=== PATIENT | female | born 1935 | race Caucasian/White ===

== ENCOUNTER 2023-01-27 09:07 | Inpatient (IN) | payer OTHER ==
[~2023-01-27] VITALS: Ht 170.2 cm; Wt 60.3 kg
[2023-01-27] MEDS ORDERED: MAGNESIUM SULFATE 2 GM in IV DEXTROSE 5% 100 ML IV ONE (09:45)
[2023-01-27] MEDS ORDERED: DILTIAZEM HCL 25 MG IV IV ONE (09:45)
[2023-01-27] MEDS ORDERED: POTASSIUM BICARBONATE/CIT AC 25 MEQ TABLET.EFF PO ONE (09:45)
[2023-01-27 10:14] LABS: BASOPHILS # (AUTO) 0.3 K/UL (0.0-0.2); BASOPHILS % (AUTO) 1.8 % (0.0-2.0); EOSINOPHILS # (AUTO) 0.1 K/uL (0.0-0.7); EOSINOPHILS % (AUTO) 0.7 % (0.0-7.0); HEMATOCRIT 31.1 % (31.2-41.9); HEMOGLOBIN 9.4 g/dL (10.9-14.3); LYMPHOCYTES # (AUTO) 1.5 K/uL (0.8-4.8); LYMPHOCYTES % (AUTO) 9.1 % (20.5-51.5); MEAN CORPUSCULAR HEMOGLOBIN 22.7 uug (24.7-32.8); MEAN CORPUSCULAR HGB CONC 30 g/dL (32.3-35.6); MEAN CORPUSCULAR VOLUME 75.6 fL (75.5-95.3); NEUTROPHILS # (AUTO) 13.6 K/uL (1.8-8.9); NEUTROPHILS % (AUTO) 82.4 % (38.5-71.5); PLATELET COUNT (AUTO) 194 K/uL (179-408); RED BLOOD CELL COUNT(AUTO) 4.12 MIL/uL (3.63-4.92); RED CELL DISTRIBUTION WIDTH 18.2 % (12.3-17.7); WHITE BLOOD COUNT (AUTO) 16.5 K/uL (3.8-11.8)
[2023-01-27] MEDS ORDERED: DILTIAZEM HCL 25 MG IV ONE (10:19)
[2023-01-27] MEDS ORDERED: POTASSIUM BICARBONATE/CIT AC 25 MEQ TABLET.EFF ONE (10:19)
[2023-01-27 10:30] LABS: DIFFERENTIAL COMMENT 1
[2023-01-27] MEDS ORDERED: MAGNESIUM SULFATE/D5W 100 ML ONE ×2 (11:10→12:13)
[2023-01-27] MEDS: MAGNESIUM SULFATE/D5W 100 ML IV SCH ×2 (11:15→12:18)
[2023-01-27 12:16] LABS: *CLARITY,URINE CLEAR (CLEAR); *COLOR,URINE YELLOW (YELLOW)
[2023-01-27 12:17] LABS: *BILIRUBIN,URIN NEGATIVE (NEGATIVE); *BLOOD, URINE TRACE (NEGATIVE); *KETONES,URINE NEGATIVE (NEGATIVE); *PROTEIN,URINE NEGATIVE (NEGATIVE); *UROBILINOGEN,URINE 0.2 E.U./dl (NORMAL); LEUKOCYTE ESTERASE ,URINE NEGATIVE (NEGATIVE); NITRITE, URINE NEGATIVE (NEGATIVE); UGLUCOSE NEGATIVE (NEGATIVE)
[2023-01-27] MEDS ORDERED: AZITHROMYCIN IV 500 MG in IV DEXTROSE 5% 250 ML IV ONE (12:30)
[2023-01-27] MEDS ORDERED: CEFTRIAXONE 1 G in IV DEXTROSE 5% 50 ML IV ONE (12:30)
[2023-01-27] MEDS ORDERED: CEFTRIAXONE /D5W 50ML IVPB **ER PYXIS IV ONE (12:40)
[2023-01-27] MEDS ORDERED: AZITHROMYCIN 500MG/ D5W 250ML IVPB **ER PYXIS ONLY IV ONE (12:40)
[2023-01-27 12:42] LABS: BACTERIA,URINE NONE SEEN /HPF (NONE SEEN); RBC,URINE 0-3 /HPF (0-3); SQUAMOUS EPITHELIAL CELL,UR FEW /HPF (NONE SEEN)
[2023-01-27 13:53] LABS: CALCIUM 9.6 mg/dL (8.5-10.1); CARBON DIOXIDE 21 mmol/L (21-32); CHLORIDE 106 mmol/L (98-107); CREATININE 0.8 mg/dL (0.6-1.3); GLUCOSE 139 mg/dL (74-106); POTASSIUM 4.2 mmol/L (3.5-5.1); SODIUM SERUM 141 mmol/L (136-145); UREA NITROGEN, BLOOD 19 mg/dL (7-18)
[2023-01-27 14:06] LABS: NT-PRO BNP 5572 pg/mL (0-125)
[2023-01-27] MEDS ORDERED: ACETAMINOPHEN 325 MG TABLET PO PRN (14:15)
[2023-01-27] MEDS ORDERED: MAGNESIUM HYDROXIDE 30 ML LIQUID UDC PO PRN (14:15)
[2023-01-27] MEDS ORDERED: ONDANSETRON 4 MG/2 ML VIAL IV PRN (14:15)
[2023-01-27] MEDS ORDERED: IV 1/2NS 1000 ML 1,000 ML IV PRN (14:15)
[2023-01-27 14:39] LABS: IRON, SERUM 9 ug/dL (50-175)
[2023-01-27 14:53] LABS: FERRITIN 18 ng/mL (8-252)
[2023-01-27] MEDS ORDERED: ENOXAPARIN SODIUM 40 MG/0.4 ML DISP.SYRIN SQ ONE (15:26)
[2023-01-27] MEDS: ENOXAPARIN SODIUM 40 MG/0.4 ML DISP.SYRIN SQ SCH (15:34)
[2023-01-27] MEDS ORDERED: BRIN8DRO EACHEYE (15:36)
[2023-01-27] MEDS ORDERED: ASPI81TA31 PO (15:36)
[2023-01-27] MEDS ORDERED: AMIT25TA9 PO (15:36)
[2023-01-27] MEDS ORDERED: ANAG1CAP3 PO (15:36)
[2023-01-27] MEDS ORDERED: TAMO20TA4 PO (15:36)
[2023-01-27] MEDS ORDERED: TIMO5DRO35 EACHEYE (15:36)
[2023-01-27 16:19] VITALS: BP 112/63; TEMP 98.2; O2SAT 93
[2023-01-27] MEDS ORDERED: DOSING BY PHARMACY-MD TO SPECIFY MED/ROUTE XX PRN (17:30)
[2023-01-27] MEDS: AMITRIPTYLINE HCL 25 MG TABLET PO SCH (18:16)
[2023-01-27] MEDS: DOXYCYCLINE HYCLATE IV 100 MG in IV DEXTROSE 5% 100 ML IV SCH (21:19)
[2023-01-27] MEDS: TIMOLOL 0.5% EACHEYE SCH (21:19)
[2023-01-27] MEDS: BRINZOLAMIDE EACHEYE SCH (21:19)
[2023-01-27] MEDS: BRIMONIDINE EACHEYE SCH (21:19)
[2023-01-27 22:12] VITALS: BP 126/91; TEMP 97.7; O2SAT 91
[2023-01-28] VITALS (7 sets, daily range): BP systolic 118–164; BP diastolic 47–97; TEMP 97.6–98.4; O2SAT 94–99
[2023-01-28] MEDS ORDERED: ALBUTEROL SULFATE 2.5 MG/3 ML NEBU NEB PRN (05:45)
[2023-01-28] MEDS ORDERED: LORAZEPAM 1 MG TABLET PO PRN (05:45)
[2023-01-28 06:01] LABS: ABG BASE EXCESS -4.4 mmol/L (-2.0-2.0); ABG HCO3 21.1 mmol/L (22.0-26.0); ABG PCO2 40.3 mmHg (35.0-48.0); ABG PH 7.336 (7.340-7.440); ABG PO2 96.1 mmHg (75.0-100.0); ABG SITE RIGHT RADIAL; ABG TOTAL HEMOGLOBIN 10.4 G/dL (12.0-16.0); AaDO2 96.9 mmHg; COHb 0.3 % (0.0-3.9); MetHb 0.3 % (0.0-1.5); O2Hb 96.3 % (94.0-97.0)
[2023-01-28] MEDS: PANTOPRAZOLE SODIUM 40 MG TABLET.DR PO SCH (06:29)
[2023-01-28] MEDS: FUROSEMIDE 40 MG/4 ML VIAL IV SCH ×2 (06:37→20:32)
[2023-01-28 07:34] LABS: BASOPHILS # (AUTO) 0.3 K/UL (0.0-0.2); BASOPHILS % (AUTO) 1.3 % (0.0-2.0); EOSINOPHILS # (AUTO) 0.1 K/uL (0.0-0.7); EOSINOPHILS % (AUTO) 0.3 % (0.0-7.0); HEMATOCRIT 31.6 % (31.2-41.9); HEMOGLOBIN 9.4 g/dL (10.9-14.3); LYMPHOCYTES # (AUTO) 1.3 K/uL (0.8-4.8); MEAN CORPUSCULAR HEMOGLOBIN 22.8 uug (24.7-32.8); MEAN CORPUSCULAR HGB CONC 30 g/dL (32.3-35.6); MEAN CORPUSCULAR VOLUME 76.7 fL (75.5-95.3); MONOCYTES # (AUTO) 1.9 K/uL (0.1-1.30); MONOCYTES % (AUTO) 7.4 % (0.0-11.0); NEUTROPHILS # (AUTO) 22.3 K/uL (1.8-8.9); PLATELET COUNT (AUTO) 177 K/uL (179-408); RED BLOOD CELL COUNT(AUTO) 4.12 MIL/uL (3.63-4.92); RED CELL DISTRIBUTION WIDTH 18.7 % (12.3-17.7); WHITE BLOOD COUNT (AUTO) 25.9 K/uL (3.8-11.8)
[2023-01-28 07:37] LABS: DIFFERENTIAL COMMENT 1
[2023-01-28 07:45] LABS: CALCIUM 9.2 mg/dL (8.5-10.1); CARBON DIOXIDE 22 mmol/L (21-32); CHLORIDE 103 mmol/L (98-107); GLUCOSE 155 mg/dL (74-106); MAGNESIUM 2.5 mg/dL (1.8-2.4); POTASSIUM 4.6 mmol/L (3.5-5.1); SODIUM SERUM 136 mmol/L (136-145); UREA NITROGEN, BLOOD 23 mg/dL (7-18)
[2023-01-28] MEDS: BRINZOLAMIDE EACHEYE SCH ×3 (10:06→20:32)
[2023-01-28] MEDS: DOXYCYCLINE HYCLATE IV 100 MG in IV DEXTROSE 5% 100 ML IV SCH ×2 (10:06→20:32)
[2023-01-28] MEDS: ASPIRIN 81 MG TAB.CHEW PO SCH (10:06)
[2023-01-28] MEDS: BRIMONIDINE EACHEYE SCH ×3 (10:06→20:32)
[2023-01-28] MEDS: CEFTRIAXONE 2 G in IV DEXTROSE 5% 100 ML IV SCH (13:42)
[2023-01-28] MEDS: ENOXAPARIN SODIUM 40 MG/0.4 ML DISP.SYRIN SQ SCH (14:26)
[2023-01-28 17:16] LABS: *RHEUMATOID FACTOR SCREEN NEGATIVE (NEGATIVE)
[2023-01-28 17:29] LABS: C-REACTIVE PROTEIN 2.06 mg/dL (0.00-0.30)
[2023-01-28] MEDS: ENSURE ENLIVE (VAN) 240 ML LIQUID PO SCH (17:35)
[2023-01-28] MEDS: AMITRIPTYLINE HCL 25 MG TABLET PO SCH (17:35)
[2023-01-28] MEDS: TIMOLOL 0.5% EACHEYE SCH (20:32)
[2023-01-29 04:00] VITALS: BP 135/73; TEMP 98.2; O2SAT 99
[2023-01-29 06:39] VITALS: BP 135/73; TEMP 98.2; O2SAT 99
[2023-01-29] MEDS: PANTOPRAZOLE SODIUM 40 MG TABLET.DR PO SCH (06:52)
[2023-01-29 07:14] LABS: BASOPHILS # (AUTO) 0.4 K/UL (0.0-0.2); BASOPHILS % (AUTO) 2.3 % (0.0-2.0); DIFFERENTIAL COMMENT 0; EOSINOPHILS # (AUTO) 0.2 K/uL (0.0-0.7); EOSINOPHILS % (AUTO) 1.3 % (0.0-7.0); HEMATOCRIT 33.1 % (31.2-41.9); HEMOGLOBIN 10.1 g/dL (10.9-14.3); LYMPHOCYTES % (AUTO) 16.6 % (20.5-51.5); MEAN CORPUSCULAR HEMOGLOBIN 22.5 uug (24.7-32.8); MEAN CORPUSCULAR HGB CONC 31 g/dL (32.3-35.6); MEAN CORPUSCULAR VOLUME 73.8 fL (75.5-95.3); MONOCYTES # (AUTO) 1.4 K/uL (0.1-1.30); MONOCYTES % (AUTO) 8.1 % (0.0-11.0); NEUTROPHILS # (AUTO) 12.8 K/uL (1.8-8.9); NEUTROPHILS % (AUTO) 71.7 % (38.5-71.5); PLATELET COUNT (AUTO) 132 K/uL (179-408); RED BLOOD CELL COUNT(AUTO) 4.48 MIL/uL (3.63-4.92); RED CELL DISTRIBUTION WIDTH 18.5 % (12.3-17.7); WHITE BLOOD COUNT (AUTO) 17.8 K/uL (3.8-11.8)
[2023-01-29 07:29] LABS: CALCIUM 8.8 mg/dL (8.5-10.1); CARBON DIOXIDE 29 mmol/L (21-32); CHLORIDE 101 mmol/L (98-107); CREATININE 0.9 mg/dL (0.6-1.3); GLUCOSE 103 mg/dL (74-106); PHOSPHOROUS 3.4 mg/dL (2.5-4.9); POTASSIUM 3.8 mmol/L (3.5-5.1); SODIUM SERUM 137 mmol/L (136-145); UREA NITROGEN, BLOOD 20 mg/dL (7-18)
[2023-01-29 08:06] LABS: *IMMUNOGLOBULIN G, SERUM 995 mg/dL (586-1602); HEPATITIS B SURFACE AB, QUAL Reactive (.); HEPATITIS B SURFACE AG Negative (Negative); HEPATITIS C VIRUS ANTIBODY Non Reactive (Non Reactive); IMMUNOGLOBULIN A, SERUM 295 mg/dL (64-422); IMMUNOGLOBULIN M, SERUM 290 mg/dL (26-217)
[2023-01-29] MEDS: ENSURE ENLIVE (VAN) 240 ML LIQUID PO SCH ×2 (08:53→17:30)
[2023-01-29] MEDS: ASPIRIN 81 MG TAB.CHEW PO SCH (08:56)
[2023-01-29] MEDS: DOXYCYCLINE HYCLATE IV 100 MG in IV DEXTROSE 5% 100 ML IV SCH ×2 (09:02→20:40)
[2023-01-29] MEDS: FUROSEMIDE 40 MG/4 ML VIAL IV SCH ×2 (09:02→20:40)
[2023-01-29 12:00] VITALS: BP 127/88; TEMP 98.2; O2SAT 97
[2023-01-29 12:07] LABS: FREE LAMBDA LT CHAIN SERUM 17.3 mg/L (5.7-26.3); KAPPA/LAMBDA RATIO SERUM 1.56 (0.26-1.65)
[2023-01-29 13:10] LABS: *ANTI-SCLERODERMA-70 AB <0.2 AI (0.0-0.9); *RNP ANTIBODIES 2.2 AI (0.0-0.9); *SJOGREN'S ANTI-SS-A <0.2 AI (0.0-0.9); *SJOGREN'S ANTI-SS-B <0.2 AI (0.0-0.9); *SMITH ANTIBODIES <0.2 AI (0.0-0.9); A/G RATIO 0.8 (0.7-1.7); ALBUMIN 2.7 g/dL (2.9-4.4); ALPHA-1-GLOBULIN 0.4 g/dL (0.0-0.4); ALPHA-2-GLOBULIN 0.7 g/dL (0.4-1.0); ANTI-DNA(DS) AB, QN <1 IU/mL (0-9); ANTI-NUCLEAR AB DIRECT Positive (Negative); BETA GLOBULIN 0.9 g/dL (0.7-1.3); GAMMA GLOBULIN 1.3 g/dL (0.4-1.8); GLOBULIN, TOTAL 3.4 g/dL (2.2-3.9); M-SPIKE Not Observed g/dL (Not Observed)
[2023-01-29] MEDS: ENOXAPARIN SODIUM 40 MG/0.4 ML DISP.SYRIN SQ SCH (14:36)
[2023-01-29] MEDS: CEFTRIAXONE 2 G in IV DEXTROSE 5% 100 ML IV SCH (14:36)
[2023-01-29 16:05] VITALS: BP 124/65; TEMP 97.2; O2SAT 98
[2023-01-29 16:15] VITALS: O2SAT 98
[2023-01-29] MEDS: AMITRIPTYLINE HCL 25 MG TABLET PO SCH (17:29)
[2023-01-29] MEDS: BRIMONIDINE EACHEYE SCH (17:29)
[2023-01-29] MEDS: BRINZOLAMIDE EACHEYE SCH (17:29)
[2023-01-29 20:00] VITALS: BP 109/51; TEMP 97.7; O2SAT 100
[2023-01-29] MEDS: TIMOLOL 0.5% EACHEYE SCH (20:39)
[2023-01-29 23:25] LABS: *OCCULT BLOOD STOOL NEGATIVE (NEGATIVE)
[2023-01-30] VITALS (7 sets, daily range): BP systolic 112–124; BP diastolic 54–67; TEMP 97.6–98.4; O2SAT 95–100
[2023-01-30] MEDS: PANTOPRAZOLE SODIUM 40 MG TABLET.DR PO SCH (06:35)
[2023-01-30 07:10] LABS: BASOPHILS # (AUTO) 0.3 K/UL (0.0-0.2); BASOPHILS % (AUTO) 1.6 % (0.0-2.0); EOSINOPHILS # (AUTO) 0.4 K/uL (0.0-0.7); HEMATOCRIT 33.3 % (31.2-41.9); HEMOGLOBIN 9.9 g/dL (10.9-14.3); LYMPHOCYTES # (AUTO) 3.9 K/uL (0.8-4.8); LYMPHOCYTES % (AUTO) 20.3 % (20.5-51.5); MEAN CORPUSCULAR HEMOGLOBIN 22.5 uug (24.7-32.8); MEAN CORPUSCULAR HGB CONC 30 g/dL (32.3-35.6); MEAN CORPUSCULAR VOLUME 75.6 fL (75.5-95.3); MONOCYTES # (AUTO) 1.6 K/uL (0.1-1.30); MONOCYTES % (AUTO) 8.1 % (0.0-11.0); NEUTROPHILS # (AUTO) 13.2 K/uL (1.8-8.9); PLATELET COUNT (AUTO) 173 K/uL (179-408); RED BLOOD CELL COUNT(AUTO) 4.41 MIL/uL (3.63-4.92); RED CELL DISTRIBUTION WIDTH 18.6 % (12.3-17.7); WHITE BLOOD COUNT (AUTO) 19.4 K/uL (3.8-11.8)
[2023-01-30 07:20] LABS: DIFFERENTIAL COMMENT 1
[2023-01-30 07:21] LABS: CALCIUM 8.6 mg/dL (8.5-10.1); CARBON DIOXIDE 28 mmol/L (21-32); CHLORIDE 99 mmol/L (98-107); CREATININE 0.9 mg/dL (0.6-1.3); GLUCOSE 95 mg/dL (74-106); MAGNESIUM 2.4 mg/dL (1.8-2.4); PHOSPHOROUS 3.6 mg/dL (2.5-4.9); SODIUM SERUM 135 mmol/L (136-145); UREA NITROGEN, BLOOD 24 mg/dL (7-18)
[2023-01-30 07:29] LABS: POTASSIUM 4.3 mmol/L (3.5-5.1)
[2023-01-30] MEDS: ENSURE ENLIVE (VAN) 240 ML LIQUID PO SCH ×2 (08:57→17:15)
[2023-01-30] MEDS: ASPIRIN 81 MG TAB.CHEW PO SCH (09:29)
[2023-01-30] MEDS: FUROSEMIDE 40 MG/4 ML VIAL IV SCH (09:29)
[2023-01-30] MEDS: DOXYCYCLINE HYCLATE IV 100 MG in IV DEXTROSE 5% 100 ML IV SCH ×2 (09:29→21:10)
[2023-01-30] MEDS: BRINZOLAMIDE EACHEYE SCH ×2 (09:31→17:15)
[2023-01-30] MEDS: BRIMONIDINE EACHEYE SCH ×2 (09:31→17:15)
[2023-01-30] MEDS: METOPROLOL SUCCINATE XL 25 MG TAB.SR.24H PO SCH (11:58)
[2023-01-30] MEDS: AMIODARONE HCL 200 MG TABLET PO SCH ×2 (11:58→21:08)
[2023-01-30] MEDS: CEFTRIAXONE 2 G in IV DEXTROSE 5% 100 ML IV SCH (13:55)
[2023-01-30] MEDS: ENOXAPARIN SODIUM 40 MG/0.4 ML DISP.SYRIN SQ SCH (14:03)
[2023-01-30] MEDS: AMITRIPTYLINE HCL 25 MG TABLET PO SCH (17:13)
[2023-01-30] MEDS ORDERED: FUROSEMIDE 40 MG/4 ML VIAL IV SCH (21:00)
[2023-01-30] MEDS: TIMOLOL 0.5% EACHEYE SCH (21:08)
[2023-01-31 00:05] VITALS: BP 114/46; TEMP 97.7; O2SAT 99
[2023-01-31 04:32] VITALS: BP 138/64; TEMP 97.8; O2SAT 98
[2023-01-31] MEDS: PANTOPRAZOLE SODIUM 40 MG TABLET.DR PO SCH (06:33)
[2023-01-31 06:51] LABS: BASOPHILS # (AUTO) 0.4 K/UL (0.0-0.2); BASOPHILS % (AUTO) 2.4 % (0.0-2.0); EOSINOPHILS # (AUTO) 0.4 K/uL (0.0-0.7); EOSINOPHILS % (AUTO) 2.7 % (0.0-7.0); HEMATOCRIT 32.3 % (31.2-41.9); HEMOGLOBIN 9.7 g/dL (10.9-14.3); LYMPHOCYTES # (AUTO) 3.4 K/uL (0.8-4.8); MEAN CORPUSCULAR HEMOGLOBIN 22.3 uug (24.7-32.8); MEAN CORPUSCULAR HGB CONC 30 g/dL (32.3-35.6); MEAN CORPUSCULAR VOLUME 74.2 fL (75.5-95.3); MONOCYTES # (AUTO) 1.4 K/uL (0.1-1.30); MONOCYTES % (AUTO) 8.5 % (0.0-11.0); NEUTROPHILS # (AUTO) 10.6 K/uL (1.8-8.9); NEUTROPHILS % (AUTO) 65.4 % (38.5-71.5); PLATELET COUNT (AUTO) 293 K/uL (179-408); RED BLOOD CELL COUNT(AUTO) 4.35 MIL/uL (3.63-4.92); RED CELL DISTRIBUTION WIDTH 18.5 % (12.3-17.7); WHITE BLOOD COUNT (AUTO) 16.2 K/uL (3.8-11.8)
[2023-01-31 07:08] LABS: CALCIUM 9.2 mg/dL (8.5-10.1); CARBON DIOXIDE 30 mmol/L (21-32); CHLORIDE 100 mmol/L (98-107); GLUCOSE 105 mg/dL (74-106); MAGNESIUM 2.3 mg/dL (1.8-2.4); PHOSPHOROUS 3.7 mg/dL (2.5-4.9); POTASSIUM 4.4 mmol/L (3.5-5.1); SODIUM SERUM 135 mmol/L (136-145); UREA NITROGEN, BLOOD 35 mg/dL (7-18)
[2023-01-31 07:09] LABS: DIFFERENTIAL COMMENT 1
[2023-01-31] MEDS: ASPIRIN 81 MG TAB.CHEW PO SCH (09:05)
[2023-01-31] MEDS: METOPROLOL SUCCINATE XL 25 MG TAB.SR.24H PO SCH (09:05)
[2023-01-31] MEDS: AMIODARONE HCL 200 MG TABLET PO SCH ×2 (09:05→20:45)
[2023-01-31] MEDS: ENSURE ENLIVE (VAN) 240 ML LIQUID PO SCH ×2 (09:06→17:23)
[2023-01-31] MEDS: DOXYCYCLINE HYCLATE IV 100 MG in IV DEXTROSE 5% 100 ML IV SCH ×2 (09:06→20:45)
[2023-01-31] MEDS: BRIMONIDINE EACHEYE SCH ×2 (09:06→17:22)
[2023-01-31] MEDS: BRINZOLAMIDE EACHEYE SCH ×2 (09:06→17:22)
[2023-01-31] MEDS: REMEDY ESSENTIAL ZINC PASTE 113 GM TP PRN (09:07)
[2023-01-31 11:34] VITALS: BP 130/100; TEMP 98.4; O2SAT 96
[2023-01-31] MEDS: CEFTRIAXONE 2 G in IV DEXTROSE 5% 100 ML IV SCH (12:13)
[2023-01-31] MEDS: SOD FERRIC GLUC COMPLX/SUCROSE 125 MG in IV NORMAL SALINE 100 ML IV SCH (13:45)
[2023-01-31] MEDS: ENOXAPARIN SODIUM 40 MG/0.4 ML DISP.SYRIN SQ SCH (13:47)
[2023-01-31 15:20] VITALS: BP 107/60; TEMP 98.2; O2SAT 93
[2023-01-31] MEDS: AMITRIPTYLINE HCL 25 MG TABLET PO SCH (17:22)
[2023-01-31 17:25] VITALS: O2SAT 98
[2023-01-31 20:00] VITALS: BP 112/73; TEMP 98.2; O2SAT 90
[2023-01-31] MEDS: TIMOLOL 0.5% EACHEYE SCH (20:45)
[2023-02-01] VITALS: BP 116/53; TEMP 98.3; O2SAT 98
[2023-02-01 03:54] VITALS: O2SAT 98
[2023-02-01 04:00] VITALS: BP 137/60; TEMP 97.7; O2SAT 95
[2023-02-01] MEDS: PANTOPRAZOLE SODIUM 40 MG TABLET.DR PO SCH (06:17)
[2023-02-01 08:29] LABS: BASOPHILS # (AUTO) 0.4 K/UL (0.0-0.2); BASOPHILS % (AUTO) 2.1 % (0.0-2.0); EOSINOPHILS # (AUTO) 0.5 K/uL (0.0-0.7); EOSINOPHILS % (AUTO) 2.8 % (0.0-7.0); HEMOGLOBIN 9.9 g/dL (10.9-14.3); LYMPHOCYTES # (AUTO) 2.9 K/uL (0.8-4.8); LYMPHOCYTES % (AUTO) 17.1 % (20.5-51.5); MEAN CORPUSCULAR HEMOGLOBIN 22.4 uug (24.7-32.8); MEAN CORPUSCULAR HGB CONC 30 g/dL (32.3-35.6); MEAN CORPUSCULAR VOLUME 74.4 fL (75.5-95.3); MONOCYTES # (AUTO) 1.2 K/uL (0.1-1.30); MONOCYTES % (AUTO) 7.1 % (0.0-11.0); NEUTROPHILS # (AUTO) 12.1 K/uL (1.8-8.9); NEUTROPHILS % (AUTO) 70.9 % (38.5-71.5); PLATELET COUNT (AUTO) 552 K/uL (179-408); RED BLOOD CELL COUNT(AUTO) 4.43 MIL/uL (3.63-4.92); RED CELL DISTRIBUTION WIDTH 18.8 % (12.3-17.7)
[2023-02-01 08:43] LABS: DIFFERENTIAL COMMENT 1
[2023-02-01 08:50] LABS: CALCIUM 9.3 mg/dL (8.5-10.1); CARBON DIOXIDE 33 mmol/L (21-32); CHLORIDE 100 mmol/L (98-107); CREATININE 0.9 mg/dL (0.6-1.3); GLUCOSE 106 mg/dL (74-106); MAGNESIUM 2.2 mg/dL (1.8-2.4); POTASSIUM 4.3 mmol/L (3.5-5.1); SODIUM SERUM 135 mmol/L (136-145); UREA NITROGEN, BLOOD 31 mg/dL (7-18)
[2023-02-01] MEDS: DOXYCYCLINE HYCLATE IV 100 MG in IV DEXTROSE 5% 100 ML IV SCH ×2 (09:23→20:55)
[2023-02-01] MEDS: BRIMONIDINE EACHEYE SCH ×2 (09:25→16:46)
[2023-02-01] MEDS: BRINZOLAMIDE EACHEYE SCH ×2 (09:25→16:46)
[2023-02-01] MEDS: METOPROLOL SUCCINATE XL 25 MG TAB.SR.24H PO SCH (09:25)
[2023-02-01] MEDS: ASPIRIN 81 MG TAB.CHEW PO SCH (09:25)
[2023-02-01] MEDS: AMIODARONE HCL 200 MG TABLET PO SCH (09:26)
[2023-02-01] MEDS: ENSURE ENLIVE (VAN) 240 ML LIQUID PO SCH ×2 (09:26→16:46)
[2023-02-01] MEDS: REMEDY ESSENTIAL ZINC PASTE 113 GM TP PRN (09:27)
[2023-02-01] MEDS: FUROSEMIDE 20 MG TABLET PO SCH (09:46)
[2023-02-01 11:43] VITALS: BP 96/28; TEMP 98.1; O2SAT 96
[2023-02-01] MEDS: CEFTRIAXONE 2 G in IV DEXTROSE 5% 100 ML IV SCH (12:18)
[2023-02-01] MEDS: SOD FERRIC GLUC COMPLX/SUCROSE 125 MG in IV NORMAL SALINE 100 ML IV SCH (13:38)
[2023-02-01] MEDS: ENOXAPARIN SODIUM 40 MG/0.4 ML DISP.SYRIN SQ SCH (14:06)
[2023-02-01 14:58] LABS: HIV-1 p24 ANTIGEN NON REACTIVE (NONREACTIVE); HIV-1/2 ANTIBODY NON REACTIVE (NONREACTIVE)
[2023-02-01 16:32] VITALS: BP 101/39; TEMP 97.9; O2SAT 97
[2023-02-01] MEDS: AMITRIPTYLINE HCL 25 MG TABLET PO SCH (16:45)
[2023-02-01] MEDS ORDERED: ANAGRELIDE HCL 0.5 MG CAPSULE PO SCH (17:00)
[2023-02-01 20:19] VITALS: BP 115/49; TEMP 98.4; O2SAT 94
[2023-02-01] MEDS: TIMOLOL 0.5% EACHEYE SCH (20:58)
[2023-02-02 04:39] VITALS: BP 149/71; TEMP 98.3; O2SAT 95
[2023-02-02 06:01] VITALS: O2SAT 98
[2023-02-02] MEDS: PANTOPRAZOLE SODIUM 40 MG TABLET.DR PO SCH (06:10)
[2023-02-02 07:49] LABS: BASOPHILS # (AUTO) 0.1 K/UL (0.0-0.2); BASOPHILS % (AUTO) 0.8 % (0.0-2.0); EOSINOPHILS # (AUTO) 0.3 K/uL (0.0-0.7); EOSINOPHILS % (AUTO) 1.8 % (0.0-7.0); HEMOGLOBIN 9.5 g/dL (10.9-14.3); LYMPHOCYTES # (AUTO) 2.8 K/uL (0.8-4.8); LYMPHOCYTES % (AUTO) 16.4 % (20.5-51.5); MEAN CORPUSCULAR HEMOGLOBIN 22.2 uug (24.7-32.8); MEAN CORPUSCULAR HGB CONC 31 g/dL (32.3-35.6); MEAN CORPUSCULAR VOLUME 72.6 fL (75.5-95.3); MONOCYTES # (AUTO) 0.9 K/uL (0.1-1.30); MONOCYTES % (AUTO) 5.3 % (0.0-11.0); NEUTROPHILS # (AUTO) 12.8 K/uL (1.8-8.9); NEUTROPHILS % (AUTO) 75.7 % (38.5-71.5); PLATELET COUNT (AUTO) 652 K/uL (179-408); RED BLOOD CELL COUNT(AUTO) 4.27 MIL/uL (3.63-4.92); RED CELL DISTRIBUTION WIDTH 18.3 % (12.3-17.7); WHITE BLOOD COUNT (AUTO) 16.9 K/uL (3.8-11.8)
[2023-02-02 08:00] VITALS: BP 132/66; TEMP 98.6; O2SAT 92
[2023-02-02 08:04] LABS: DIFFERENTIAL COMMENT 1
[2023-02-02] MEDS: ENSURE ENLIVE (VAN) 240 ML LIQUID PO SCH (08:48)
[2023-02-02 08:52] LABS: CALCIUM 9.1 mg/dL (8.5-10.1); CARBON DIOXIDE 28 mmol/L (21-32); CHLORIDE 99 mmol/L (98-107); CREATININE 0.8 mg/dL (0.6-1.3); GLUCOSE 100 mg/dL (74-106); MAGNESIUM 2.2 mg/dL (1.8-2.4); POTASSIUM 4.2 mmol/L (3.5-5.1); SODIUM SERUM 135 mmol/L (136-145); UREA NITROGEN, BLOOD 26 mg/dL (7-18)
[2023-02-02] MEDS: BRIMONIDINE EACHEYE SCH ×2 (09:25→18:01)
[2023-02-02] MEDS: BRINZOLAMIDE EACHEYE SCH ×2 (09:25→18:01)
[2023-02-02] MEDS: DOXYCYCLINE HYCLATE IV 100 MG in IV DEXTROSE 5% 100 ML IV SCH ×2 (09:26→20:52)
[2023-02-02] MEDS: ASPIRIN 81 MG TAB.CHEW PO SCH (09:27)
[2023-02-02] MEDS: METOPROLOL SUCCINATE XL 25 MG TAB.SR.24H PO SCH (09:27)
[2023-02-02] MEDS: FUROSEMIDE 20 MG TABLET PO SCH (09:27)
[2023-02-02] MEDS ORDERED: HYDROXYUREA 500 MG CAPSULE PO SCH (10:15)
[2023-02-02 12:00] VITALS: BP 118/60; TEMP 97.8; O2SAT 95
[2023-02-02] MEDS: ALLOPURINOL 100 MG TABLET PO SCH (12:09)
[2023-02-02] MEDS: CEFTRIAXONE 2 G in IV DEXTROSE 5% 100 ML IV SCH (14:14)
[2023-02-02] MEDS: SOD FERRIC GLUC COMPLX/SUCROSE 125 MG in IV NORMAL SALINE 100 ML IV SCH (14:14)
[2023-02-02] MEDS: ENOXAPARIN SODIUM 40 MG/0.4 ML DISP.SYRIN SQ SCH (14:17)
[2023-02-02] MEDS: AMITRIPTYLINE HCL 25 MG TABLET PO SCH (18:02)
[2023-02-02 18:04] VITALS: BP 109/42; TEMP 97.7; O2SAT 97
[2023-02-02 20:00] VITALS: BP 140/60; TEMP 98; O2SAT 97
[2023-02-02] MEDS: TIMOLOL 0.5% EACHEYE SCH (20:52)
[2023-02-03] VITALS (9 sets, daily range): BP systolic 72–169; BP diastolic 26–74; TEMP 97.6–98.1; O2SAT 91–97
[2023-02-03] MEDS: PANTOPRAZOLE SODIUM 40 MG TABLET.DR PO SCH (06:47)
[2023-02-03 07:24] LABS: BASOPHILS # (AUTO) 0.6 K/UL (0.0-0.2); BASOPHILS % (AUTO) 3.1 % (0.0-2.0); EOSINOPHILS # (AUTO) 0.5 K/uL (0.0-0.7); EOSINOPHILS % (AUTO) 2.6 % (0.0-7.0); HEMATOCRIT 31.3 % (31.2-41.9); HEMOGLOBIN 9.6 g/dL (10.9-14.3); LYMPHOCYTES # (AUTO) 2.3 K/uL (0.8-4.8); LYMPHOCYTES % (AUTO) 12.4 % (20.5-51.5); MEAN CORPUSCULAR HEMOGLOBIN 22.4 uug (24.7-32.8); MEAN CORPUSCULAR HGB CONC 31 g/dL (32.3-35.6); MEAN CORPUSCULAR VOLUME 72.8 fL (75.5-95.3); MONOCYTES # (AUTO) 1.5 K/uL (0.1-1.30); MONOCYTES % (AUTO) 8.1 % (0.0-11.0); NEUTROPHILS # (AUTO) 13.5 K/uL (1.8-8.9); NEUTROPHILS % (AUTO) 73.8 % (38.5-71.5); PLATELET COUNT (AUTO) 739 K/uL (179-408); RED CELL DISTRIBUTION WIDTH 18.7 % (12.3-17.7); WHITE BLOOD COUNT (AUTO) 18.3 K/uL (3.8-11.8)
[2023-02-03 07:32] LABS: DIFFERENTIAL COMMENT 1
[2023-02-03] MEDS: BRINZOLAMIDE EACHEYE SCH ×2 (09:55→17:12)
[2023-02-03] MEDS: BRIMONIDINE EACHEYE SCH ×2 (09:55→17:12)
[2023-02-03] MEDS: FUROSEMIDE 20 MG TABLET PO SCH (09:55)
[2023-02-03] MEDS: ASPIRIN 81 MG TAB.CHEW PO SCH (09:55)
[2023-02-03] MEDS: ALLOPURINOL 100 MG TABLET PO SCH (09:55)
[2023-02-03] MEDS: METOPROLOL SUCCINATE XL 25 MG TAB.SR.24H PO SCH (10:17)
[2023-02-03] MEDS ORDERED: MISCELLANEOUS MED PO SCH (11:00)
[2023-02-03] MEDS: SOD FERRIC GLUC COMPLX/SUCROSE 125 MG in IV NORMAL SALINE 100 ML IV SCH (14:09)
[2023-02-03] MEDS: AMITRIPTYLINE HCL 25 MG TABLET PO SCH (17:09)
[2023-02-03] MEDS: ANAGRELIDE HCL 0.5 MG CAPSULE PO SCH (17:10)
[2023-02-03] MEDS ORDERED: IV NORMAL SALINE 500 ML IV SCH (21:00)
[2023-02-03] MEDS ORDERED: IV NORMAL SALINE 500 ML IV ONE (21:00)
[2023-02-03] MEDS: TIMOLOL 0.5% EACHEYE SCH (21:52)
[2023-02-04] MEDS: PANTOPRAZOLE SODIUM 40 MG TABLET.DR PO SCH (06:18)
[2023-02-04 06:32] VITALS: BP 128/50; TEMP 98.8; O2SAT 94
[2023-02-04 07:05] LABS: BASOPHILS # (AUTO) 0.6 K/UL (0.0-0.2); BASOPHILS % (AUTO) 3.7 % (0.0-2.0); EOSINOPHILS # (AUTO) 0.5 K/uL (0.0-0.7); HEMATOCRIT 29.4 % (31.2-41.9); LYMPHOCYTES # (AUTO) 1.4 K/uL (0.8-4.8); LYMPHOCYTES % (AUTO) 8.2 % (20.5-51.5); MEAN CORPUSCULAR HEMOGLOBIN 22.4 uug (24.7-32.8); MEAN CORPUSCULAR HGB CONC 31 g/dL (32.3-35.6); MEAN CORPUSCULAR VOLUME 73.3 fL (75.5-95.3); MONOCYTES # (AUTO) 1.5 K/uL (0.1-1.30); MONOCYTES % (AUTO) 8.8 % (0.0-11.0); NEUTROPHILS # (AUTO) 13.2 K/uL (1.8-8.9); NEUTROPHILS % (AUTO) 76.3 % (38.5-71.5); PLATELET COUNT (AUTO) 841 K/uL (179-408); RED BLOOD CELL COUNT(AUTO) 4.01 MIL/uL (3.63-4.92); RED CELL DISTRIBUTION WIDTH 18.7 % (12.3-17.7); WHITE BLOOD COUNT (AUTO) 17.4 K/uL (3.8-11.8)
[2023-02-04 07:19] LABS: DIFFERENTIAL COMMENT 1
[2023-02-04 08:00] VITALS: BP 133/47; TEMP 98.6; O2SAT 96
[2023-02-04] MEDS: METOPROLOL SUCCINATE XL 25 MG TAB.SR.24H PO SCH (08:49)
[2023-02-04] MEDS: ASPIRIN 81 MG TAB.CHEW PO SCH (08:49)
[2023-02-04] MEDS: ALLOPURINOL 100 MG TABLET PO SCH (08:50)
[2023-02-04] MEDS: ANAGRELIDE HCL 0.5 MG CAPSULE PO SCH ×2 (08:50→16:11)
[2023-02-04] MEDS: REMEDY ESSENTIAL ZINC PASTE 113 GM TP PRN (08:51)
[2023-02-04] MEDS: BRIMONIDINE EACHEYE SCH ×2 (08:51→16:12)
[2023-02-04] MEDS: BRINZOLAMIDE EACHEYE SCH ×2 (08:51→16:12)
[2023-02-04 09:07] LABS: ALANINE AMINOTRANSFERASE 9 U/L (14-59); ALBUMIN 2.5 g/dL (3.4-5.0); ALKALINE PHOSPHATASE 67 U/L (50-136); ASPARTATE AMINOTRANSFERASE 15 U/L (15-37); BILIRUBIN,TOTAL 0.4 mg/dL (0.2-1.0); CALCIUM 8.8 mg/dL (8.5-10.1); CARBON DIOXIDE 26 mmol/L (21-32); CHLORIDE 105 mmol/L (98-107); CREATININE 0.9 mg/dL (0.6-1.3); GLUCOSE 93 mg/dL (74-106); POTASSIUM 4.3 mmol/L (3.5-5.1); SODIUM SERUM 136 mmol/L (136-145); TOTAL PROTEIN, SERUM 5.8 g/dL (6.4-8.2); UREA NITROGEN, BLOOD 31 mg/dL (7-18)
[2023-02-04] MEDS: SOD FERRIC GLUC COMPLX/SUCROSE 125 MG in IV NORMAL SALINE 100 ML IV SCH (13:45)
[2023-02-04 15:54] VITALS: BP 105/58; TEMP 97.6; O2SAT 97
[2023-02-04] MEDS: AMITRIPTYLINE HCL 25 MG TABLET PO SCH (17:04)
[2023-02-04 20:10] VITALS: BP 99/34; TEMP 98.6; O2SAT 93
[2023-02-04] MEDS: TIMOLOL 0.5% EACHEYE SCH (20:50)
[2023-02-05 04:10] VITALS: BP 130/68; TEMP 98.1; O2SAT 95
[2023-02-05] MEDS: PANTOPRAZOLE SODIUM 40 MG TABLET.DR PO SCH (06:02)
[2023-02-05 07:36] LABS: BASOPHILS # (AUTO) 0.6 K/UL (0.0-0.2); BASOPHILS % (AUTO) 3.5 % (0.0-2.0); DIFFERENTIAL COMMENT 0; EOSINOPHILS # (AUTO) 0.5 K/uL (0.0-0.7); EOSINOPHILS % (AUTO) 3.3 % (0.0-7.0); HEMATOCRIT 31.1 % (31.2-41.9); HEMOGLOBIN 9.4 g/dL (10.9-14.3); LYMPHOCYTES # (AUTO) 1.5 K/uL (0.8-4.8); LYMPHOCYTES % (AUTO) 9.4 % (20.5-51.5); MEAN CORPUSCULAR HEMOGLOBIN 22.1 uug (24.7-32.8); MEAN CORPUSCULAR HGB CONC 30 g/dL (32.3-35.6); MONOCYTES # (AUTO) 1.2 K/uL (0.1-1.30); MONOCYTES % (AUTO) 7.6 % (0.0-11.0); NEUTROPHILS # (AUTO) 12.4 K/uL (1.8-8.9); NEUTROPHILS % (AUTO) 76.2 % (38.5-71.5); PLATELET COUNT (AUTO) 967 K/uL (179-408); RED BLOOD CELL COUNT(AUTO) 4.26 MIL/uL (3.63-4.92); RED CELL DISTRIBUTION WIDTH 18.9 % (12.3-17.7); WHITE BLOOD COUNT (AUTO) 16.3 K/uL (3.8-11.8)
[2023-02-05 08:00] VITALS: BP 133/47; TEMP 98.6; O2SAT 96
[2023-02-05] MEDS: ALLOPURINOL 100 MG TABLET PO SCH (08:52)
[2023-02-05] MEDS: METOPROLOL SUCCINATE XL 25 MG TAB.SR.24H PO SCH (08:52)
[2023-02-05] MEDS: ASPIRIN 81 MG TAB.CHEW PO SCH (08:52)
[2023-02-05] MEDS: BRIMONIDINE EACHEYE SCH ×2 (08:53→16:53)
[2023-02-05] MEDS: BRINZOLAMIDE EACHEYE SCH ×2 (08:53→16:53)
[2023-02-05] MEDS: ANAGRELIDE HCL 0.5 MG CAPSULE PO SCH ×2 (08:54→16:54)
[2023-02-05 12:00] VITALS: BP 100/45; TEMP 97.8; O2SAT 96
[2023-02-05] MEDS ORDERED: GADOTERATE MEGLUMINE 10 MMOL/20 ML VIAL IV ONE (15:51)
[2023-02-05 16:00] VITALS: BP 121/61; TEMP 98.1; O2SAT 98
[2023-02-05] MEDS ORDERED: DOSING BY PHARMACY-MD TO SPECIFY MED/ROUTE XX PRN (16:45)
[2023-02-05] MEDS: AMITRIPTYLINE HCL 25 MG TABLET PO SCH (17:30)
[2023-02-05] MEDS ORDERED: ANAGRELIDE HCL 0.5 MG CAPSULE PO ONE (18:15)
[2023-02-05 20:00] VITALS: BP 96/42; TEMP 97.3; O2SAT 95
[2023-02-05] MEDS: TIMOLOL 0.5% EACHEYE SCH (21:23)
[2023-02-06 04:15] VITALS: BP 139/64; TEMP 98.2; O2SAT 96
[2023-02-06] MEDS: PANTOPRAZOLE SODIUM 40 MG TABLET.DR PO SCH (07:02)
[2023-02-06] MEDS: METOPROLOL SUCCINATE XL 25 MG TAB.SR.24H PO SCH (09:16)
[2023-02-06] MEDS: ALLOPURINOL 100 MG TABLET PO SCH (09:16)
[2023-02-06] MEDS: BRIMONIDINE EACHEYE SCH ×2 (09:16→16:11)
[2023-02-06] MEDS: ASPIRIN 81 MG TAB.CHEW PO SCH (09:16)
[2023-02-06] MEDS: BRINZOLAMIDE EACHEYE SCH ×2 (09:16→16:11)
[2023-02-06] MEDS: ANAGRELIDE HCL 0.5 MG CAPSULE PO SCH ×2 (09:17→16:14)
[2023-02-06 11:23] LABS: BASOPHILS # (AUTO) 0.6 K/UL (0.0-0.2); BASOPHILS % (AUTO) 3.8 % (0.0-2.0); EOSINOPHILS # (AUTO) 0.5 K/uL (0.0-0.7); EOSINOPHILS % (AUTO) 3.1 % (0.0-7.0); HEMATOCRIT 28.1 % (31.2-41.9); HEMOGLOBIN 8.5 g/dL (10.9-14.3); LYMPHOCYTES # (AUTO) 1.2 K/uL (0.8-4.8); LYMPHOCYTES % (AUTO) 7.9 % (20.5-51.5); MEAN CORPUSCULAR HEMOGLOBIN 22.5 uug (24.7-32.8); MEAN CORPUSCULAR HGB CONC 30 g/dL (32.3-35.6); MEAN CORPUSCULAR VOLUME 73.9 fL (75.5-95.3); MONOCYTES # (AUTO) 1.4 K/uL (0.1-1.30); MONOCYTES % (AUTO) 9.2 % (0.0-11.0); NEUTROPHILS # (AUTO) 11.6 K/uL (1.8-8.9); PLATELET COUNT (AUTO) 793 K/uL (179-408); WHITE BLOOD COUNT (AUTO) 15.2 K/uL (3.8-11.8)
[2023-02-06 11:25] LABS: DIFFERENTIAL COMMENT 1
[2023-02-06 12:23] VITALS: BP 116/59; TEMP 97.8; O2SAT 98
[2023-02-06 16:14] VITALS: BP 91/53; TEMP 98.1; O2SAT 98
[2023-02-06] MEDS: AMITRIPTYLINE HCL 25 MG TABLET PO SCH (17:09)
[2023-02-06 20:45] VITALS: BP 86/47; TEMP 98.1; O2SAT 97
[2023-02-06] MEDS: TIMOLOL 0.5% EACHEYE SCH (20:59)
[2023-02-06] MEDS ORDERED: IV NORMAL SALINE 500 ML IV ONE (21:15)
[2023-02-06 21:55] VITALS: BP 93/38; O2SAT 98
[2023-02-07 04:00] VITALS: BP 95/58; TEMP 98.3; O2SAT 95
[2023-02-07] MEDS: PANTOPRAZOLE SODIUM 40 MG TABLET.DR PO SCH (07:03)
[2023-02-07 08:11] LABS: BASOPHILS # (AUTO) 0.3 K/UL (0.0-0.2); BASOPHILS % (AUTO) 1.8 % (0.0-2.0); EOSINOPHILS # (AUTO) 0.4 K/uL (0.0-0.7); EOSINOPHILS % (AUTO) 2.5 % (0.0-7.0); HEMOGLOBIN 9.1 g/dL (10.9-14.3); LYMPHOCYTES # (AUTO) 1.5 K/uL (0.8-4.8); MEAN CORPUSCULAR HEMOGLOBIN 22.7 uug (24.7-32.8); MEAN CORPUSCULAR HGB CONC 30 g/dL (32.3-35.6); MEAN CORPUSCULAR VOLUME 74.6 fL (75.5-95.3); MONOCYTES % (AUTO) 6.1 % (0.0-11.0); NEUTROPHILS # (AUTO) 13.6 K/uL (1.8-8.9); NEUTROPHILS % (AUTO) 80.6 % (38.5-71.5); PLATELET COUNT (AUTO) 681 K/uL (179-408); RED BLOOD CELL COUNT(AUTO) 4.02 MIL/uL (3.63-4.92); WHITE BLOOD COUNT (AUTO) 16.9 K/uL (3.8-11.8)
[2023-02-07 08:26] LABS: DIFFERENTIAL COMMENT 1
[2023-02-07] MEDS: BRINZOLAMIDE EACHEYE SCH ×2 (09:11→17:18)
[2023-02-07] MEDS: BRIMONIDINE EACHEYE SCH ×2 (09:11→17:18)
[2023-02-07] MEDS: ASPIRIN 81 MG TAB.CHEW PO SCH (09:11)
[2023-02-07] MEDS: ANAGRELIDE HCL 0.5 MG CAPSULE PO SCH ×2 (09:11→17:18)
[2023-02-07] MEDS: ALLOPURINOL 100 MG TABLET PO SCH (09:12)
[2023-02-07] MEDS: METOPROLOL SUCCINATE XL 25 MG TAB.SR.24H PO SCH (09:14)
[2023-02-07 10:30] VITALS: BP 125/52; TEMP 98.2; O2SAT 97
[2023-02-07 16:00] VITALS: BP 108/45; TEMP 98.4; O2SAT 96
[2023-02-07] MEDS: AMITRIPTYLINE HCL 25 MG TABLET PO SCH (17:19)
[2023-02-07 19:30] VITALS: BP 85/40; TEMP 98.5; O2SAT 97
[2023-02-07] MEDS: TIMOLOL 0.5% EACHEYE SCH (22:20)
[2023-02-08 06:20] LABS: BASOPHILS # (AUTO) 0.8 K/UL (0.0-0.2); BASOPHILS % (AUTO) 4.8 % (0.0-2.0); EOSINOPHILS # (AUTO) 0.6 K/uL (0.0-0.7); EOSINOPHILS % (AUTO) 3.4 % (0.0-7.0); HEMATOCRIT 28.2 % (31.2-41.9); HEMOGLOBIN 8.7 g/dL (10.9-14.3); LYMPHOCYTES # (AUTO) 1.5 K/uL (0.8-4.8); LYMPHOCYTES % (AUTO) 8.6 % (20.5-51.5); MEAN CORPUSCULAR HEMOGLOBIN 23.1 uug (24.7-32.8); MEAN CORPUSCULAR HGB CONC 31 g/dL (32.3-35.6); MEAN CORPUSCULAR VOLUME 75.1 fL (75.5-95.3); MONOCYTES # (AUTO) 1.3 K/uL (0.1-1.30); MONOCYTES % (AUTO) 7.8 % (0.0-11.0); NEUTROPHILS # (AUTO) 12.7 K/uL (1.8-8.9); NEUTROPHILS % (AUTO) 75.4 % (38.5-71.5); PLATELET COUNT (AUTO) 525 K/uL (179-408); RED BLOOD CELL COUNT(AUTO) 3.75 MIL/uL (3.63-4.92); WHITE BLOOD COUNT (AUTO) 16.9 K/uL (3.8-11.8)
[2023-02-08 06:29] VITALS: BP 141/61; TEMP 98.2; O2SAT 94
[2023-02-08 06:37] LABS: CALCIUM 8.6 mg/dL (8.5-10.1); CARBON DIOXIDE 27 mmol/L (21-32); CHLORIDE 107 mmol/L (98-107); CREATININE 0.9 mg/dL (0.6-1.3); GLUCOSE 100 mg/dL (74-106); SODIUM SERUM 139 mmol/L (136-145); UREA NITROGEN, BLOOD 21 mg/dL (7-18)
[2023-02-08] MEDS: PANTOPRAZOLE SODIUM 40 MG TABLET.DR PO SCH (06:37)
[2023-02-08 07:10] LABS: DIFFERENTIAL COMMENT 1
[2023-02-08 08:00] VITALS: BP 153/53; TEMP 98.2; O2SAT 96
[2023-02-08] MEDS: METOPROLOL SUCCINATE XL 25 MG TAB.SR.24H PO SCH (09:37)
[2023-02-08] MEDS: ASPIRIN 81 MG TAB.CHEW PO SCH (09:37)
[2023-02-08] MEDS: ALLOPURINOL 100 MG TABLET PO SCH (09:38)
[2023-02-08] MEDS: ANAGRELIDE HCL 0.5 MG CAPSULE PO SCH ×2 (09:39→22:03)
[2023-02-08] MEDS: BRIMONIDINE EACHEYE SCH ×2 (09:40→17:10)
[2023-02-08] MEDS: BRINZOLAMIDE EACHEYE SCH ×2 (09:40→17:10)
[2023-02-08 11:15] VITALS: BP 111/54; TEMP 97.7; O2SAT 97
[2023-02-08] MEDS: TAMOXIFEN CITRATE 10 MG TABLET PO SCH (11:37)
[2023-02-08 15:52] VITALS: BP 99/43; TEMP 97.9; O2SAT 91
[2023-02-08] MEDS: AMITRIPTYLINE HCL 25 MG TABLET PO SCH (17:10)
[2023-02-08 20:00] VITALS: BP 129/56; TEMP 97.8; O2SAT 96
[2023-02-08] MEDS ORDERED: MISCELLANEOUS MED PO SCH (21:00)
[2023-02-08] MEDS: TIMOLOL 0.5% EACHEYE SCH (22:01)
[2023-02-09 05:00] VITALS: BP 150/65; TEMP 98.6; O2SAT 93
[2023-02-09] MEDS: PANTOPRAZOLE SODIUM 40 MG TABLET.DR PO SCH (06:24)
[2023-02-09 08:00] VITALS: BP 138/67; TEMP 97.9
[2023-02-09] MEDS: ASPIRIN 81 MG TAB.CHEW PO SCH (08:34)
[2023-02-09] MEDS: BRINZOLAMIDE EACHEYE SCH ×2 (08:39→17:28)
[2023-02-09] MEDS: BRIMONIDINE EACHEYE SCH ×2 (08:39→17:28)
[2023-02-09] MEDS: TAMOXIFEN CITRATE 10 MG TABLET PO SCH (08:39)
[2023-02-09] MEDS: ALLOPURINOL 100 MG TABLET PO SCH (08:42)
[2023-02-09] MEDS: ANAGRELIDE HCL 0.5 MG CAPSULE PO SCH ×2 (08:44→17:27)
[2023-02-09] MEDS: METOPROLOL SUCCINATE XL 25 MG TAB.SR.24H PO SCH (08:48)
[2023-02-09 09:19] LABS: THYROID STIMULATING HORMONE 10.595 mIU/mL (0.358-3.740)
[2023-02-09 09:30] LABS: DIFFERENTIAL COMMENT 0; MONOCYTES # (AUTO) 0.9 K/uL (0.1-1.30)
[2023-02-09 09:33] LABS: BASOPHILS # (AUTO) 0.2 K/UL (0.0-0.2); BASOPHILS % (AUTO) 1.1 % (0.0-2.0); EOSINOPHILS # (AUTO) 0.4 K/uL (0.0-0.7); EOSINOPHILS % (AUTO) 2.3 % (0.0-7.0); HEMATOCRIT 31.9 % (31.2-41.9); HEMOGLOBIN 9.7 g/dL (10.9-14.3); LYMPHOCYTES # (AUTO) 1.5 K/uL (0.8-4.8); LYMPHOCYTES % (AUTO) 8.2 % (20.5-51.5); MEAN CORPUSCULAR HEMOGLOBIN 23.1 uug (24.7-32.8); MEAN CORPUSCULAR HGB CONC 31 g/dL (32.3-35.6); MEAN CORPUSCULAR VOLUME 75.6 fL (75.5-95.3); MONOCYTES % (AUTO) 4.8 % (0.0-11.0); NEUTROPHILS # (AUTO) 14.8 K/uL (1.8-8.9); NEUTROPHILS % (AUTO) 83.6 % (38.5-71.5); PLATELET COUNT (AUTO) 468 K/uL (179-408); RED BLOOD CELL COUNT(AUTO) 4.22 MIL/uL (3.63-4.92); RED CELL DISTRIBUTION WIDTH 19.9 % (12.3-17.7); WHITE BLOOD COUNT (AUTO) 17.8 K/uL (3.8-11.8)
[2023-02-09 10:00] LABS: URIC ACID 3.8 mg/dL (2.6-6.0)
[2023-02-09 12:00] VITALS: BP 108/42; TEMP 98; O2SAT 95
[2023-02-09 14:19] LABS: C-REACTIVE PROTEIN 0.44 mg/dL (0.00-0.30)
[2023-02-09 16:00] VITALS: BP 127/61; TEMP 97.7; O2SAT 97
[2023-02-09] MEDS: AMITRIPTYLINE HCL 25 MG TABLET PO SCH (17:27)
[2023-02-09] MEDS: TIMOLOL 0.5% EACHEYE SCH (21:11)
[2023-02-10] MEDS: PANTOPRAZOLE SODIUM 40 MG TABLET.DR PO SCH (06:47)
[2023-02-10 08:00] VITALS: BP 147/65; TEMP 98.1; O2SAT 98
[2023-02-10] MEDS: ASPIRIN 81 MG TAB.CHEW PO SCH (09:04)
[2023-02-10] MEDS: METOPROLOL SUCCINATE XL 25 MG TAB.SR.24H PO SCH (09:04)
[2023-02-10] MEDS: ALLOPURINOL 100 MG TABLET PO SCH (09:04)
[2023-02-10] MEDS: BRIMONIDINE EACHEYE SCH ×2 (09:05→17:26)
[2023-02-10] MEDS: ANAGRELIDE HCL 0.5 MG CAPSULE PO SCH ×2 (09:05→19:53)
[2023-02-10] MEDS: BRINZOLAMIDE EACHEYE SCH ×2 (09:05→17:26)
[2023-02-10] MEDS: TAMOXIFEN CITRATE 10 MG TABLET PO SCH (09:07)
[2023-02-10] MEDS: LEVOTHYROXINE SODIUM 50 MCG TABLET PO SCH (11:29)
[2023-02-10 12:01] LABS: BASOPHILS # (AUTO) 0.7 K/UL (0.0-0.2); EOSINOPHILS # (AUTO) 0.3 K/uL (0.0-0.7); EOSINOPHILS % (AUTO) 1.9 % (0.0-7.0); HEMATOCRIT 30.9 % (31.2-41.9); HEMOGLOBIN 9.5 g/dL (10.9-14.3); LYMPHOCYTES % (AUTO) 7.1 % (20.5-51.5); MEAN CORPUSCULAR HEMOGLOBIN 23.4 uug (24.7-32.8); MEAN CORPUSCULAR HGB CONC 31 g/dL (32.3-35.6); MEAN CORPUSCULAR VOLUME 76.3 fL (75.5-95.3); MONOCYTES # (AUTO) 0.8 K/uL (0.1-1.30); MONOCYTES % (AUTO) 5.7 % (0.0-11.0); NEUTROPHILS # (AUTO) 10.9 K/uL (1.8-8.9); NEUTROPHILS % (AUTO) 80.3 % (38.5-71.5); PLATELET COUNT (AUTO) 334 K/uL (179-408); RED BLOOD CELL COUNT(AUTO) 4.05 MIL/uL (3.63-4.92); RED CELL DISTRIBUTION WIDTH 20.6 % (12.3-17.7); WHITE BLOOD COUNT (AUTO) 13.6 K/uL (3.8-11.8)
[2023-02-10 12:12] LABS: DIFFERENTIAL COMMENT 1
[2023-02-10 14:01] VITALS: BP 114/57; TEMP 97.6; O2SAT 99
[2023-02-10 15:54] VITALS: BP 99/47; TEMP 97.8; O2SAT 96
[2023-02-10] MEDS: AMITRIPTYLINE HCL 25 MG TABLET PO SCH (17:25)
[2023-02-10] MEDS ORDERED: MISCELLANEOUS MED PO SCH (20:00)
[2023-02-10 20:15] VITALS: BP 128/59; TEMP 98.3; O2SAT 95
[2023-02-10] MEDS: TIMOLOL 0.5% EACHEYE SCH (20:55)
[2023-02-11] MEDS: PANTOPRAZOLE SODIUM 40 MG TABLET.DR PO SCH (06:15)
[2023-02-11] MEDS: LEVOTHYROXINE SODIUM 50 MCG TABLET PO SCH (06:15)
[2023-02-11 06:52] VITALS: BP 122/70; TEMP 98; O2SAT 96
[2023-02-11 07:08] LABS: BASOPHILS # (AUTO) 0.4 K/UL (0.0-0.2); EOSINOPHILS # (AUTO) 0.5 K/uL (0.0-0.7); EOSINOPHILS % (AUTO) 3.5 % (0.0-7.0); HEMATOCRIT 30.6 % (31.2-41.9); HEMOGLOBIN 9.6 g/dL (10.9-14.3); LYMPHOCYTES # (AUTO) 1.5 K/uL (0.8-4.8); LYMPHOCYTES % (AUTO) 11.4 % (20.5-51.5); MEAN CORPUSCULAR HEMOGLOBIN 23.8 uug (24.7-32.8); MEAN CORPUSCULAR HGB CONC 31 g/dL (32.3-35.6); MEAN CORPUSCULAR VOLUME 76.1 fL (75.5-95.3); MONOCYTES # (AUTO) 0.9 K/uL (0.1-1.30); MONOCYTES % (AUTO) 7.3 % (0.0-11.0); NEUTROPHILS # (AUTO) 9.5 K/uL (1.8-8.9); NEUTROPHILS % (AUTO) 74.8 % (38.5-71.5); PLATELET COUNT (AUTO) 249 K/uL (179-408); RED BLOOD CELL COUNT(AUTO) 4.02 MIL/uL (3.63-4.92); WHITE BLOOD COUNT (AUTO) 12.8 K/uL (3.8-11.8)
[2023-02-11 07:27] LABS: DIFFERENTIAL COMMENT 1
[2023-02-11 08:00] VITALS: BP 155/84; TEMP 97.8; O2SAT 96
[2023-02-11] MEDS: ASPIRIN 81 MG TAB.CHEW PO SCH (09:16)
[2023-02-11] MEDS: ALLOPURINOL 100 MG TABLET PO SCH (09:17)
[2023-02-11] MEDS: METOPROLOL SUCCINATE XL 25 MG TAB.SR.24H PO SCH (09:17)
[2023-02-11] MEDS: TAMOXIFEN CITRATE 10 MG TABLET PO SCH (09:18)
[2023-02-11] MEDS: BRINZOLAMIDE EACHEYE SCH (09:19)
[2023-02-11] MEDS: BRIMONIDINE EACHEYE SCH (09:19)
[2023-02-11] MEDS: ANAGRELIDE HCL 0.5 MG CAPSULE PO SCH (10:46)
[2023-02-11 11:50] VITALS: BP 138/72; O2SAT 97
[2023-02-11 12:00] VITALS: BP 94/44; TEMP 98.6; O2SAT 100
== END 2023-02-11 14:30 | DRG 871 ==
LOC: ER 09:07 → TRANSITION 15:02 → TELE3 15:47 → MEDSURG3 01-28 11:29 → TELE3 01-28 11:45 → MEDSURG3 02-01 09:30 → TELE3 02-02 18:08 → MEDSURG3 02-04 08:36
PROVIDERS: ADMIT Nurse Practitioner Family; ATTEND Nurse Practitioner Family
PROC: 05HC33Z Insertion of Infusion Device into Left Basilic Vein, Percutaneous Approach (ICD-10-PCS; principal; 2023-01-30)
DX: A41.9 Sepsis, unspecified organism (principal); I50.41 Acute combined systolic (congestive) and diastolic (congestive) heart failure; J15.9 Unspecified bacterial pneumonia; J96.01 Acute respiratory failure with hypoxia; C94.6 Myelodysplastic disease, not elsewhere classified; D61.818 Other pancytopenia; J98.11 Atelectasis; N39.0 Urinary tract infection, site not specified; Z16.21 Resistance to vancomycin; I48.91 Unspecified atrial fibrillation; D75.839 Thrombocytosis, unspecified; R97.0 Elevated carcinoembryonic antigen [CEA]; D50.9 Iron deficiency anemia, unspecified; E03.9 Hypothyroidism, unspecified; R53.1 Weakness; H91.93 Unspecified hearing loss, bilateral; I08.3 Combined rheumatic disorders of mitral, aortic and tricuspid valves; G62.9 Polyneuropathy, unspecified; F41.9 Anxiety disorder, unspecified; H40.9 Unspecified glaucoma; I73.9 Peripheral vascular disease, unspecified; I51.7 Cardiomegaly; H53.2 Diplopia; B95.2 Enterococcus as the cause of diseases classified elsewhere; M50.31 Other cervical disc degeneration, high cervical region; M48.02 Spinal stenosis, cervical region; R94.31 Abnormal electrocardiogram [ECG] [EKG]; T46.2X5A Adverse effect of other antidysrhythmic drugs, initial encounter; Y92.230 Patient room in hospital as the place of occurrence of the external cause; Z79.899 Other long term (current) drug therapy; Z87.891 Personal history of nicotine dependence; Z85.3 Personal history of malignant neoplasm of breast; Z90.11 Acquired absence of right breast and nipple
CPT/HCPCS: 36415; 36600; 70030-TC; 70450; 70553; 71045; 76700; 82378; 82784; 83550; 83605; 83615; 83735; 84100; 84155; 84165; 84443; 84480; 84484; 84550; 85025; 85651; 85730; 86038; 86140; 86300; 86334; 86430; 86706; 86803; 87040; 87340; 87806; 88185; 93005; 93307; A4606; A4663; A6213; A9575; G0378; J0456; J0696; J1650; J1940; J2916; J3475; J3490; J7040; J8499; J8999